=== PATIENT | male | born 1955 | race Caucasian/White ===

== ENCOUNTER 2017-04-18 07:39 | Day surgery (SDC) | payer MEDICAID, OTHER ==
[2017-04-18] MEDS ORDERED: LIDOCAINE 1% 2 ML INJ ID PRN (08:12)
[2017-04-18] MEDS ORDERED: LR 1,000 ML IV ONE (08:12)
--- NOTE | 2017-04-18 08:50 | PDANEPAE ---
ANE History of Present Illness Colonoscopy ANE Past Medical History - Cardiovascular History Hx Hypertension: Yes Hx Arrhythmias: No Hx Chest Pain: No Hx Coronary Artery / Peripheral Vascular Disease: No Hx CHF / Valvular Disease: No Hx Palpitations: No - Pulmonary History Hx COPD: No Hx Asthma/Reactive Airway Disease: Yes Hx Recent Upper Respiratory Infection: No Hx Oxygen in Use at Home: No Hx Sleep Apnea: No Sleep Apnea Screening Result - Last Documented: Positive ANE Review of Systems - Exercise capacity METS (RN): 4 METS ANE Patient History - Allergies Allergies/Adverse Reactions: No Allergies [NKA] Allergy (Verified 04/18/17 08:12) - Home Medications Home Medications: Atenolol 04/18/17 [Last Taken 04/18/17] Lisinopril-Hctz 10-12.5 mg Tab 04/18/17 [Last Taken 04/18/17] Simvastatin 04/18/17 [Last Taken 04/17/17] - NPO status NPO Since - Liquids (Date): 04/17/17 NPO Since - Liquids (Time): 21:30 NPO Since - Solids (Date): 04/17/17 NPO Since - Solids (Time): 19:00 - Anes Hx Anes Hx: no prior problems - Smoking Hx Smoking Status: Never smoked Marijuana use: Yes - Alcohol Use Alcohol Use: Rarely - Family Anes Hx Family Anes Hx: none ANE Labs/Vital Signs - Vital Signs Blood Pressure: 132/81 Heart Rate: 53 Respiratory Rate: 16 O2 Sat (%): 98 Height: 185.42 cm Weight: 108.862 kg ANE Physical Exam - Airway Neck exam: FROM Mallampati Score: Class 2 - Pulmonary Pulmonary: no respiratory distress - Cardiovascular Cardiovascular: regular rate and rhythym - ASA Status ASA Status: II ANE Anesthesia Plan Anesthesia Plan: GA w LMA, GA with mask Total IV Anesthesia: Yes
[2017-04-18] MEDS ORDERED: PROPOFOL/EMULSION 500 MG/50 ML BOTTLE IV ONE (09:05)
[2017-04-18] MEDS ORDERED: LIDOCAINE 2% 5 ML SDV ONE (09:06)
[2017-04-18] MEDS ORDERED: NALOXONE HCL 0.4 MG/ML INJ IVP PRN (09:07)
[2017-04-18] MEDS ORDERED: ONDANSETRON 4 MG/2 ML VIAL IVP PRN (09:07)
--- NOTE | 2017-04-18 09:26 | PDGENHP ---
History & Physical Chief Complaint: Screening colonoscopy Relevant Physical Exam: GEN: NAD. Cardiac: RRR. Lungs: CTA B. Abd: Soft, nt, nd
--- NOTE | 2017-04-18 09:53 | POSTOPPROG ---
Post Op Note Date of Operation: 04/18/17 Surgeon: Pete Dunbar Pre-op Diagnosis: Screening colonoscopy Post-op Diagnosis: Same Indication: Screening colonoscopy Procedure: Colonoscopy Findings: Normal colonoscopy Inf/Abcess present in the surg proc area at time of surgery?: No
--- NOTE | 2017-04-18 10:18 | POSTANESTH ---
Post Anesthetic Evaluation Cardiovascular Status: Normal, Stable Respiratory Status: Normal, Stable Level of Consciousness/Mental Status: Can Participate in Eval Pain Control: Adequate, Prn Tx Ordered Nausea/Vomiting Control: Adequate, Prn Tx Ordered Complications Possibly Related to Anesthesia: None Noted
--- NOTE | 2017-04-18 10:42 | GPN ---
[f rep st] PROCEDURE NOTE PREPROCEDURE DIAGNOSIS: Screening colonoscopy. POSTPROCEDURE DIAGNOSIS: Screening colonoscopy. PROCEDURE: Colonoscopy. ANESTHESIA: Monitored anesthesia care. COMPLICATIONS: None. BIOPSIES: No. BLOOD LOSS: None. INDICATIONS: The patient is a 61-year-old gentleman here for a screening colonoscopy. The risks and benefits of the procedure were discussed with the patient. Consent obtained. Risks include, but not limited to, bleeding, perforation, risks related to sedation. The patient is ASA class 1. DESCRIPTION OF PROCEDURE: The pediatric colonoscope was advanced into the terminal ileum, which appears normal. The ileocecal valve, appendiceal orifice , cecum, ascending colon, hepatic flexure, transverse colon, splenic flexure, descending colon, sigmoid colon, and rectum appeared normal. Retroflexed views in the rectum were normal. IMPRESSION: Normal screening colonoscopy. RECOMMENDATION: 1. Discharged home with escort. 2. Advance diet as tolerated. 3. Repeat colonoscopy in 10 years for screening purposes. 4. Thank you for allowing me to participate in the care of your patient. Please do not hesitate to call with questions. /[id number]/MODL MTDD
[2017-04-18 10:56] VITALS: RESP 16
[2017-04-18 11:06] VITALS: PULSE 45; O2SAT 100
[2017-04-18 11:50] VITALS: BP 128/96; TEMP 97
== END 2017-04-18 11:50 | disposition home or self-care (01) ==
LOC: FSGY 07:39
PROVIDERS: ATTEND Internal Medicine Gastroenterology
PROC: 0DJD8ZZ Inspection of Lower Intestinal Tract, Via Natural or Artificial Opening Endoscopic (ICD-10-PCS; principal; 2017-04-18 09:00)
DX: Z12.11 Encounter for screening for malignant neoplasm of colon (principal)
CPT/HCPCS: J2704

== ENCOUNTER 2018-01-17 09:51 | Day surgery (SDC) | payer MEDICAID ==
[2018-01-17] MEDS ORDERED: ASPIRIN EC 325 MG TAB PO ONE ×2 (09:53→10:23)
[2018-01-17] MEDS ORDERED: diphenhydrAMINE 25 MG CAP PO ONE ×2 (09:53→10:22)
[2018-01-17] MEDS ORDERED: DIAZEPAM 5 MG TAB PO ONE (09:53)
[2018-01-17] MEDS ORDERED: NS 1,000 ML IV ONE (09:53)
[2018-01-17] MEDS ORDERED: FAMOTIDINE 20 MG TAB PO ONE (09:53)
--- NOTE | 2018-01-17 10:18 | CPEKG ---
Heart Rate: 45 RR Interval: 1333 P-R Interval: 188 QRSD Interval: 88 QT Interval: 440 QTC Interval: 381 P Emily: 82 QRS Emily: 59 T Wave Emily: 59 EKG Severity - OTHERWISE NORMAL ECG - EKG Impression: SINUS BRADYCARDIA Electronically Signed By: Rizwana Means 18-Jan-2018 08:40:17
[2018-01-17] MEDS ORDERED: DIAZEPAM 5 MG TAB ONE (10:23)
[2018-01-17] MEDS ORDERED: FAMOTIDINE 20 MG TAB ONE (10:23)
[2018-01-17 10:54] LABS: INR 0.84 (0.83-1.16); PROTIME(PATIENT) 11.7 SEC (12.0-15.0)
[2018-01-17 11:01] LABS: PLATELET COUNT 232 10^3/uL (150-400)
--- NOTE | 2018-01-17 12:23 | PDGENHP ---
History and Physical History and Physical: 62 yo male here for elective LHC. Patient had recent TMET in our office which was + for ST depressions in inferior-lateral leads. Patient deneis any recent hx of CP or new SOB. ECG today shows NSR. Patient is very concerned about why he needs an invasive procedure based on treadmill test. I discussed in depth with him about prognostic value of TMET and his results. However, given his lack of symptoms, I feel we should follow up this test with a nuclear stress test for further risk stratification. I also believe the patient deserves to have a full office visit with cardiology to expand on his history/risk factors/symptoms. The patient is very agreeable to this plan and will have the stress test performed within the next two days in our office. We will have him f/u with me immediately after his results are known. PE: RRR s1 s2 cta-b soft, NT, NG no clubbing, edema A/O x 3 A/P: +TMET- Patient will f/u with our office this week for nuclaear imaging/ stress test. F/U with myself immediately when test results are known. I have asked the patient to refrain from heavy exertion until appointment.
== END 2018-01-17 17:20 | disposition home or self-care (01) ==
LOC: FCATH 09:51
PROVIDERS: ATTEND Internal Medicine Cardiovascular Disease
DX: R94.39 Abnormal result of other cardiovascular function study (principal); Z53.9 Procedure and treatment not carried out, unspecified reason

== ENCOUNTER 2018-12-22 11:38 | Emergency (ER) | payer OTHER ==
--- NOTE | 2018-12-22 11:53 | EDPHY ---
H & P Stated Complaint: n/v/d since monday chills body aches Time Seen by Provider: 12/22/18 11:45 HPI/ROS: CHIEF COMPLAINT: "I think I have food poisoning" HISTORY OF PRESENT ILLNESS: 63-year-old male no history of chronic abdominal pathology abdominal surgeries complaining of 3 days of intractable nausea vomiting diarrhea left lower quadrant abdominal pain. No testicle pain. No fever no chills. No back or flank pain. No chest pain. No dyspnea. No international travel. No untreated water sources. No recent antibiotic use. No urinary abnormality. No melena hematochezia. PRIMARY CARE PROVIDER: [facility] REVIEW OF SYSTEMS: 10 systems reviewed and negative with the exception of the elements mentioned in the history of present illness PAST MEDICAL & SURGICAL HISTORY: no history of abdominal surgeries. Hyperlipidemia. SOCIAL HISTORY:Nonsmoker PHYSICAL EXAM (Prior to examination, patient consented to physical exam, hands were washed and my usual and customary physical exam procedures followed) 1) GENERAL: Well-developed, well-nourished, alert and oriented. Appears to be in no acute distress. 2) HEAD: Normocephalic, atraumatic 3) HEENT: Pupils equal, round, reactive to light bilaterally. Sclera anicteric. Nasopharynx, oropharynx, clear, no lesions. Dry mucous membranes. 4) NECK: Full range of motion, no meningeal signs. 5) LUNGS: Clear auscultation bilaterally, no wheezes, no rhonchi, no retractions. 6) HEART: Regular rate and rhythm, no murmur, no heave, no gallop. 7) ABDOMEN: No guarding, tender to palpation left lower quadrant, no focal tenderness, negative McBurney's, negative Bruce's, negative Rovsing's, negative peritoneal sign, 8) MUSCULOSKELETAL: Moving all extremities, no focal areas of tenderness, no obvious trauma. No peripheral edema or discoloration. 9) BACK: No CVA tenderness, no midline vertebral tenderness, no fluctuance, no step-off, no obvious trauma, no visual or palpable abnormality. 10) SKIN: No rash, no petechiae. 11) Psychiatric: Patient is oriented X 3, there is no agitation. DIFFERENTIAL DIAGNOSIS: My differential diagnosis includes, but is not limited to, acute appendicitis, acute cholecystitis, bowel obstruction, acute pancreatitis, acute diverticulitis, gastritis The patient understands that this diagnosis is provisional and can never be 100% accurate. This is a partial list of diagnoses considered. These considerations are based on history, physical exam, past history and reassessment. - Personal History Current Tetanus Diphtheria and Acellular Pertussis (TDAP): Yes - Medical/Surgical History Hx Asthma: No Hx Chronic Respiratory Disease: No Hx Diabetes: No Hx Cardiac Disease: No Hx Renal Disease: No Hx Cirrhosis: No Hx Alcoholism: No Hx HIV/AIDS: No Hx Splenectomy or Spleen Trauma: No Other PMH: htn - Social History Smoking Status: Never smoked Constitutional: Initial Vital Signs Temperature (C) 37.1 C 12/22/18 11:41 Heart Rate 70 12/22/18 11:41 Respiratory Rate 18 12/22/18 11:41 Blood Pressure 150/71 H 12/22/18 11:41 O2 Sat (%) 95 12/22/18 11:41 O2 Delivery Mode Room Air Allergies/Adverse Reactions: No Allergies [NKA] Allergy (Verified 12/22/18 11:39) Home Medications: Medication Instructions Recorded Atenolol [Tenormin 50 mg (*)] 50 mg PO DAILY 04/18/17 Lisinopril/Hydrochlorothiazide 1 each PO DAILY 04/18/17 [Zestoretic 20-25 mg Tablet] Simvastatin [Zocor] 20 mg PO HS 04/18/17 Albuterol [Proventil Inhaler HFA 1 - 2 puffs IH DAILY PRN 01/15/18 (*)] Aspirin EC [Aspirin EC 325 mg (*)] 325 mg PO DAILY 01/15/18 Gabapentin [Neurontin 300 MG (*)] 300 mg PO DAILY PRN 01/15/18 Amoxicillin/Clavulanate Pot 875 mg PO TID 7 Days #0 tab 12/22/18 [Augmentin 875 mg tab] Medical Decision Making - Diagnostics Imaging Results: Imaging Impressions Chest X-Ray 12/22/18 12:03 Impression: No acute cardiopulmonary process. Abdomen CT 12/22/18 12:16 Impression: 1. Mild diverticulitis in the sigmoid colon in the left lower quadrant. 2. Other chronic findings, as above. Results called and discussed with Juan Diaz PA-C, on December 22, 2018 at 1305. E:amm Images reviewed by myself ED Course/Re-evaluation: Old medical records reviewed. 12:03 p.m.: 12:27 p.m.: CT abdomen pelvis brisk cap radiologist is positive for diverticulitis without abscess or perforation. - Data Points Laboratory Results: Laboratory Results 12/22/18 11:55 12/22/18 11:55 12/22/18 12/22/18 12/22/18 12:19 12:05 11:55 WBC RBC Hgb POC Hgb 17.0 gm/dL gm/dL (13.7-17.5) Hct POC Hct 50 % % (40-51) MCV MCH MCHC RDW Plt Count MPV Neut % (Auto) Lymph % (Auto) [place] % (Auto) Eos % (Auto) Baso % (Auto) Nucleat RBC Rel Count Absolute Neuts (auto) Absolute Lymphs (auto) Absolute Monos (auto) Absolute Eos (auto) Absolute Basos (auto) Absolute Nucleated RBC Immature Gran % Seg Neutrophils % Band Neutrophils % Lymphocytes % Monocytes % Eosinophils % Basophils % Metamyelocytes % Myelocytes % Promyelocytes % Blast Cells % Immature Gran # Absolute Seg Neuts Absolute Band Neuts Absolute Lymphocytes Absolute Monocytes Absolute Eosinophils Absolute Basophils Absolute Metamyelocyte Absolute Myelocytes Absolute Promyelocytes Absolute Plasma Cells Nucleated RBCs RBC/WBC/PLT Morphology Absolute Blast Cells Plasma Cells % Platelet Estimate POC Sodium 135 mEq/L mEq/L (135-145) Sodium 133 mEq/L L mEq/L (135-145) POC Potassium 3.9 mEq/L mEq/L (3.3-5.0) Potassium 4.2 mEq/L mEq/L (3.5-5.2) POC Chloride 102 mEq/L mEq/L (97-110) Chloride 100 mEq/L mEq/L (97-110) Carbon Dioxide 20 mEq/l L mEq/l (22-31) POC Total CO2 22 mEq/L mEq/L (22-31) Anion Gap 13 mEq/L mEq/L (6-14) POC BUN 19 mg/dL mg/dL (7-23) BUN 20 mg/dL mg/dL (7-23) Creatinine 0.9 mg/dL mg/dL (0.7-1.3) POC Creatinine 1.0 mg/dL mg/dL (0.7-1.3) Estimated GFR > 60 Glucose 115 mg/dL H mg/dL (70-100) POC Glucose 119 mg/dL H mg/dL (70-100) Calcium 9.8 mg/dL mg/dL (8.5-10.4) Total Bilirubin 0.6 mg/dL mg/dL (0.1-1.4) Conjugated Bilirubin 0.5 mg/dL mg/dL (0.0-0.5) Unconjugated Bilirubin 0.1 mg/dL mg/dL (0.0-1.1) AST 53 IU/L IU/L (17-59) ALT 47 IU/L IU/L (21-72) Alkaline Phosphatase 55 IU/L IU/L (38-126) POC Troponin I 0.01 ng/mL ng/mL (0.00-0.08) Total Protein 6.5 g/dL g/dL (6.3-8.2) Albumin 4.0 g/dL g/dL (3.5-5.0) Lipase 49 IU/L IU/L (23-300) 12/22/18 11:55 WBC 7.89 10^3/uL 10^3/uL (3.80-9.50) RBC 5.20 10^6/uL 10^6/uL (4.40-6.38) Hgb 16.7 g/dL g/dL (13.7-17.5) POC Hgb Hct 48.4 % % (40.0-51.0) POC Hct MCV 93.1 fL fL (81.5-99.8) MCH 32.1 pg pg (27.9-34.1) MCHC 34.5 g/dL g/dL (32.4-36.7) RDW 12.8 % % (11.5-15.2) Plt Count 178 10^3/uL 10^3/uL (150-400) MPV 10.5 fL fL (8.7-11.7) Neut % (Auto) Not Reported Lymph % (Auto) Not Reported [place] % (Auto) Not Reported Eos % (Auto) Not Reported Baso % (Auto) Not Reported Nucleat RBC Rel Count Not Reported Absolute Neuts (auto) Not Reported Absolute Lymphs (auto) Not Reported Absolute Monos (auto) Not Reported Absolute Eos (auto) Not Reported Absolute Basos (auto) Not Reported Absolute Nucleated RBC Not Reported Immature Gran % Not Reported Seg Neutrophils % 63.9 % % Band Neutrophils % 29.9 % % Lymphocytes % 4.1 % % Monocytes % 2.1 % % Eosinophils % 0.0 % % Basophils % 0.0 % % Metamyelocytes % 0.0 % % Myelocytes % 0.0 % % Promyelocytes % 0.0 % % Blast Cells % 0.0 % % Immature Gran # Not Reported Absolute Seg Neuts 5.04 10^3/uL 10^3/uL (1.70-6.50) Absolute Band Neuts 2.36 10^3/uL H 10^3/uL (0.00-0.70) Absolute Lymphocytes 0.32 10^3/uL L 10^3/uL (1.00-3.00) Absolute Monocytes 0.17 10^3/uL L 10^3/uL (0.30-0.80) Absolute Eosinophils 0.00 10^3/uL L 10^3/uL (0.03-0.40) Absolute Basophils 0.00 10^3/uL L 10^3/uL (0.02-0.10) Absolute Metamyelocyte 0.00 10^3/mL 10^3/mL (0.00-0.00) Absolute Myelocytes 0.00 10^3/mL 10^3/mL (0.00-0.00) Absolute Promyelocytes 0.00 10^3/uL 10^3/uL (0.00-0.00) Absolute Plasma Cells 0.00 10^3/uL 10^3/uL (0.00-0.00) Nucleated RBCs 0 /100 WBC /100 WBC (0-0) RBC/WBC/PLT Morphology NORMAL (NORMAL) Absolute Blast Cells 0.00 10^3/uL 10^3/uL (0.00-0.00) Plasma Cells % 0.0 % % Platelet Estimate ADEQUATE (ADEQ) POC Sodium Sodium POC Potassium Potassium POC Chloride Chloride Carbon Dioxide POC Total CO2 Anion Gap POC BUN BUN Creatinine POC Creatinine Estimated GFR Glucose POC Glucose Calcium Total Bilirubin Conjugated Bilirubin Unconjugated Bilirubin AST ALT Alkaline Phosphatase POC Troponin I Total Protein Albumin Lipase Medications Given: Discontinued Medications Amoxicillin/Clavulanate Potassium (Augmentin 875mg) 875 mg PO EDNOW ONE PRN Reason: Protocol Stop: 12/22/18 13:09 Last Admin: 12/22/18 13:19 Dose: 875 mg Point of Care Test Results: Chemistry 12/22/18 12/22/18 12:19 12:05 POC Sodium 135 mEq/L mEq/L (135-145) POC Potassium 3.9 mEq/L mEq/L (3.3-5.0) POC Chloride 102 mEq/L mEq/L (97-110) POC Total CO2 22 mEq/L mEq/L (22-31) POC BUN 19 mg/dL mg/dL (7-23) POC Creatinine 1.0 mg/dL mg/dL (0.7-1.3) POC Glucose 119 mg/dL H mg/dL (70-100) POC Troponin I 0.01 ng/mL ng/mL (0.00-0.08) ISTAT H&H 12/22/18 12:05 POC Hgb 17.0 gm/dL gm/dL (13.7-17.5) POC Hct 50 % % (40-51) Departure - Departure Disposition: Home, Routine, Self-Care Clinical Impression: Diverticulitis large intestine Condition: Good Instructions: Diverticulitis (ED), Diverticulitis Diet (ED) Additional Instructions: Seek immediate medical attention if you develop new or worsening symptoms, if you develop fevers, chills, inability to tolerate oral intake or any other symptoms that concerns you. Referrals: Juan Luque MD [Medical Doctor] - 2-3 days, call for appt. Gladis Guerin MD [place] [place] - 2-3 days, call for appt. Prescriptions: Amoxicillin/Clavulanate Pot [Augmentin 875 mg tab] 875 mg PO TID 7 Days #0 tab
[2018-12-22] MEDS ORDERED: IOPAMIDOL (ISOVUE-300) 100 ML BTL ONE (12:18)
[2018-12-22 12:47] LABS: PLATELET COUNT 178 10^3/uL (150-400)
[2018-12-22] MEDS ORDERED: AMOXICILLIN/CLAVULANATE POT 875/125 MG TAB PO ONE (13:08)
[2018-12-22 13:24] VITALS: BP 129/87
--- NOTE | 2018-12-24 07:18 | CPEKG ---
Test Reason : OPEN Blood Pressure : / mmHG Vent. Rate : 090 BPM Atrial Rate : 096 BPM P-R Int : 165 ms QRS Dur : 090 ms QT Int : 333 ms P-R-T Axes : 066 044 047 degrees QTc Int : 408 ms Sinus tachycardia Multiform ventricular premature complexes Confirmed by Fausto Jones ([id number]) on 12/24/2018 7:18:26 AM Referred By: Fausto Jones Confirmed By:Fausto Jones
== END 2018-12-22 13:38 | disposition home or self-care (01) ==
DX: K57.32 Diverticulitis of large intestine without perforation or abscess without bleeding (principal); I10 Essential (primary) hypertension; E78.5 Hyperlipidemia, unspecified
CPT/HCPCS: 71046; 74177; 93005; 99285; Q9967; 82435-PO; 82565-PO; 82947-PO; 84132-PO; 84295-PO; 84484-ER; 84520-PO; 85014-ER